=== PATIENT | male | born 1975 | race Caucasian/White ===

== ENCOUNTER 2018-11-10 18:42 | Emergency (ER) | payer SELFPAY ==
[2018-11-10] MEDS: predniSONE 20 MG TAB PO (20:31)
[2018-11-10] MEDS: DEXAMETHASONE 0.1% 5 ML OPH BOTH EYES (20:31)
== END 2018-11-10 21:31 | disposition home or self-care (01) ==
LOC: FTE 21:31
DX: H15.103 Unspecified episcleritis, bilateral (principal)
CPT/HCPCS: 99283